=== PATIENT | female | born 1950 | race African-American/Black ===

== ENCOUNTER 2020-02-07 16:05 | Emergency (ER) | payer MEDICARE, MEDICAID ==
[~2020-02-07] VITALS: Ht 165.1 cm; Wt 67.3 kg
[2020-02-07] MEDS ORDERED: OS500 PO (16:15)
[2020-02-07] MEDS ORDERED: ALEN35TA41 PO (16:15)
[2020-02-07] MEDS ORDERED: LISI-661 PO (16:15)
[2020-02-07] MEDS ORDERED: FERR-89 PO (16:15)
[2020-02-07] MEDS ORDERED: HYDR25TA PO (16:17)
[2020-02-07 17:43] LABS: BASOPHILS % (AUTO) 0.5 % (0.0-2.0); EOSINOPHILS % (AUTO) 1.7 % (1.0-6.0); LYMPHOCYTES # (AUTO) 2.5 K/uL (1.0-4.8); LYMPHOCYTES % (AUTO) 40.4 % (22.0-44.0); MEAN CORPUSCULAR HEMOGLOBIN 28.9 pg (26.0-34.0); MEAN CORPUSCULAR HGB CONC 33.2 G/dL (31.0-37.0); MEAN CORPUSCULAR VOLUME 87 fL (80-100); MONOCYTES # (AUTO) 0.6 K/uL (0.1-1.0); NEUTROPHILS % (AUTO) 48.4 % (40.0-70.0); PLATELET COUNT (AUTO) 236 K/uL (150-450); RED BLOOD CELL COUNT(AUTO) 4.13 MIL/uL (4.00-5.20); RED CELL DISTRIBUTION WIDTH 13.6 % (11.5-14.5)
[2020-02-07 17:50] LABS: PROTHROMBIN TIME 10.8 SEC (9.4-11.6)
[2020-02-07 17:56] LABS: CALCIUM, TOTAL 9.3 mg/dL (8.8-10.5); CREATININE 1.39 mg/dL (0.60-1.30); POTASSIUM 3.3 mmol/L (3.5-5.1)
[2020-02-07 18:02] LABS: ALBUMIN 4.2 g/dL (3.4-5.0); BILIRUBIN,TOTAL 0.5 mg/dL (0.1-1.0); TOTAL PROTEIN, SERUM 8.7 g/dL (6.4-8.2)
[2020-02-07 18:36] LABS: APPEARANCE,URINE TURBID (CLEAR); GLUCOSE, URINE (UA) NEGATIVE (NEGATIVE); KETONES,URINE 40 mg/dL (NEGATIVE); LEUKOCYTE ESTERASE ,URINE LARGE (NEGATIVE); NITRATE,URINE POSITIVE (NEGATIVE); OCCULT BLOOD,URINE LARGE (NEGATIVE); PH,URINE 5.5 (5.0-8.0); PROTEIN,URINE SEE CONFIRM (NEGATIVE)
[2020-02-07 18:43] LABS: BILIRUBIN,URINE PRELIM. POSITIVE (NEGATIVE)
[2020-02-07] MEDS ORDERED: POTASSIUM CHLORIDE 20 MEQ ER TABLET PO ONE (19:00)
[2020-02-07] MEDS ORDERED: CefTRIAXone 1 GM/DEXTROSE 50 ML IV ONE (19:15)
[2020-02-07] MEDS ORDERED: SODIUM CHLORIDE 0.9% 500 ML IV ONE ×2 (19:15→21:00)
[2020-02-07 19:16] LABS: SULFOSALICYLIC ACID,URINE 4+ (Negative)
[2020-02-07 19:17] LABS: RBC,URINE Full Field /HPF (0-2)
[2020-02-07 19:19] LABS: BACTERIA,URINE Moderate /HPF (None Seen); SQUAMOUS EPITHELIAL CELL,UR Few /LPF (None Seen)
[2020-02-07] MEDS ORDERED: SODIUM CHLORIDE 0.9% 100 ML ONE (21:03)
[2020-02-07] MEDS ORDERED: IOVERSOL 320 MG/ML 100 ML VIAL ONE (21:03)
[2020-02-08] VITALS: BP 116/69
== END 2020-02-08 01:00 | disposition home or self-care (01) ==
LOC: EMS 16:07
DX: N39.0 Urinary tract infection, site not specified (principal); I10 Essential (primary) hypertension
CPT/HCPCS: 36415; 74176; 74177; 76770; 80053; 81001; 85025; 85610; 85730; 87077; 87086; 87186; 96365; 99285; J7040; J7050; Q9967

== ENCOUNTER 2023-12-31 10:14 | Emergency (ER) | payer MEDICARE, MEDICAID ==
[~2023-12-31] VITALS: Ht 157.5 cm; Wt 54.5 kg
[~2023-12-31 10:14] MED LIST: ALEN35TA41 PO; FERR325T27 PO; HYDR25TA PO; LISI-893 PO; OS500 PO
[2023-12-31 11:06] LABS: COVID AG,FIA SOURCE NASAL SWAB
[2023-12-31 11:09] LABS: APPEARANCE,URINE CLEAR (CLEAR); BILIRUBIN,URINE NEGATIVE (NEGATIVE); COLOR,URINE YELLOW (YELLOW); GLUCOSE, URINE (UA) NEGATIVE (NEGATIVE); LEUKOCYTE ESTERASE ,URINE NEGATIVE (NEGATIVE); NITRATE,URINE NEGATIVE (NEGATIVE); OCCULT BLOOD,URINE MODERATE (NEGATIVE); PH,URINE 5.5 (5.0-8.0); PROTEIN,URINE TRACE mg/dL (NEGATIVE); SPECIFIC GRAVITIY, URINE 1.017 (1.003-1.030)
[2023-12-31 11:14] LABS: BACTERIA,URINE None Seen /HPF (None Seen); SQUAMOUS EPITHELIAL CELL,UR Few /LPF (None Seen); WBC,URINE 0-2 /HPF (0-5)
[2023-12-31 11:26] LABS: SARS-COV2 (COVID) ANTIGEN,FIA Negative (Negative)
[2023-12-31 11:27] LABS: INFLUENZA TYPE A NEGATIVE FOR TYPE A (NEGATIVE); INFLUENZA TYPE B NEGATIVE FOR TYPE B (NEGATIVE)
[2023-12-31] MEDS ORDERED: AMOX500C2 PO (11:53)
[2023-12-31] MEDS ORDERED: FLUT16H NASAL (11:58)
[2023-12-31] MEDS ORDERED: ATOR20TA65 PO (11:58)
[2023-12-31] MEDS ORDERED: ALEN70TA80 PO (11:58)
[2023-12-31] MEDS ORDERED: LISI40TA9 PO (11:58)
[2023-12-31 12:07] VITALS: BP 148/92; PULSE 68; RESP 16; TEMP 98.6
== END 2023-12-31 12:10 | disposition home or self-care (01) ==
LOC: EMS 10:14
DX: J32.9 Chronic sinusitis, unspecified (principal); R05.9 Cough, unspecified; R51.9 Headache, unspecified; Z20.822 Contact with and (suspected) exposure to COVID-19
CPT/HCPCS: 71045; 81001; 87804; 99284

== ENCOUNTER 2024-01-04 01:34 | Emergency (ER) | payer MEDICARE, MEDICAID ==
[~2024-01-04] VITALS: Ht 157.5 cm; Wt 55.0 kg
[~2024-01-04 01:34] MED LIST changes: -ALEN35TA41 PO; +ALEN70TA80 PO; +AMOX500C2 PO; +ATOR20TA65 PO; -FERR325T27 PO; +FLUT16H NASAL; -HYDR25TA PO; -LISI-893 PO; +LISI40TA9 PO; -OS500 PO
[2024-01-04 01:38] VITALS: TEMP 97.7
[2024-01-04] MEDS ORDERED: FEXO-353 PO (01:44)
[2024-01-04] MEDS: DiphenhydrAMINE HCL 50 MG/ML VIAL IVP ONE (01:56)
[2024-01-04] MEDS ORDERED: MethylPREDNISolone SOD SUCC 125 MG/2 ML VIAL IVP ONE (02:00)
[2024-01-04] MEDS: FAMOTIDINE 20 MG/2 ML VIAL IVP ONE (02:04)
[2024-01-04] MEDS: DEXAMETHASONE SOD PHOS 4 MG/ML 5 ML VIAL IVP ONE (02:04)
[2024-01-04 05:00] VITALS: BP 133/70; PULSE 80; RESP 18
[2024-01-04] MEDS ORDERED: PRED-554 PO (05:46)
[2024-01-04] MEDS ORDERED: DIPH-1243 PO (05:46)
== END 2024-01-04 06:31 | disposition home or self-care (01) ==
LOC: EMS 01:34
DX: R22.0 Localized swelling, mass and lump, head (principal); T46.4X5A Adverse effect of angiotensin-converting-enzyme inhibitors, initial encounter; I10 Essential (primary) hypertension; Y92.89 Other specified places as the place of occurrence of the external cause
CPT/HCPCS: 99284; 96374; 96375; J1100; J1200; J3490; J2919